=== PATIENT | female | born 1990 | race Caucasian/White ===

== ENCOUNTER 2017-01-22 21:45 | Emergency (ER) | payer MEDICAID, OTHER ==
[~2017-01-22] VITALS: Ht 162.6 cm; Wt 71.9 kg
[2017-01-22 21:51] VITALS: Ht 162.6 cm; Wt 71.9 kg
[2017-01-22] MEDS ORDERED: ONDANSETRON (ODT) 4 MG TAB ODT STA (22:05)
[2017-01-22] MEDS ORDERED: SOD CHLORIDE 0.9% 1,000 ML IV STA (23:08)
[2017-01-22 23:36] LABS: BASOPHILS % 0.2 % (0.0-2.0); EOSINOPHILS # 0.1 10^3/ul (0.0-0.5); EOSINOPHILS % 0.8 % (0.0-7.0); HEMATOCRIT 39.4 % (37.0-47.0); HEMOGLOBIN 12.9 g/dl (12.0-16.0); LYMPHOCYTES # 2.4 10^3/ul (0.8-2.9); LYMPHOCYTES % 25.9 % (15.0-51.0); MEAN CORPUSCULAR HEMOGLOBIN 27.6 pg (29.0-33.0); MEAN CORPUSCULAR HGB CONC 32.7 g/dl (32.0-37.0); MEAN CORPUSCULAR VOLUME 84.2 fl (82.0-101.0); MEAN PLATELET VOLUME 9.3 fl (7.4-10.4); MONOCYTE # 0.8 10^3/ul (0.3-0.9); MONOCYTES % 8.5 % (0.0-11.0); NEUTROPHIL # 6.1 10^3/ul (1.6-7.5); NEUTROPHILS % 64.3 % (39.0-77.0); PLATELET COUNT 331 10^3/UL (140-415); RED BLOOD COUNT 4.68 10^6/ul (4.20-5.40); RED CELL DISTRIBUTION WIDTH 13.2 % (11.5-14.5); WHITE BLOOD COUNT 9.4 10^3/ul (4.8-10.8)
[2017-01-22 23:52] LABS: ADD UMIC YES; UR ASCORBIC ACID NEGATIVE (NEGATIVE); UR BACTERIA FEW /HPF (NONE SEEN); UR BILIRUBIN (Dip) NEGATIVE (NEGATIVE); UR BLOOD (Dip) NEGATIVE (NEGATIVE); UR CLARITY CLOUDY (CLEAR); UR COLOR AMBER (YELLOW); UR GLUCOSE (Dip) NEGATIVE (NEGATIVE); UR KETONES (Dip) NEGATIVE (NEGATIVE); UR LEUKOCYTE ESTERASE (Dip) 1+ Leu/ul (NEGATIVE); UR MUCUS MANY /HPF (NONE SEEN); UR NITRITE (Dip) NEGATIVE (NEGATIVE); UR RBC 2 /HPF (0-5); UR SPECIFIC GRAVITY (Dip) 1.027 (1.003-1.030); UR SQUAMOUS EPITHELIAL CELL MANY /HPF (FEW); UR TOTAL PROTEIN (Dip) 1+ mg/dl (NEGATIVE); UR UROBILINOGEN (Dip) 2+ mg/dL (NEGATIVE)
[2017-01-22 23:57] LABS: ALBUMIN 4.1 g/dl (3.3-4.9); ALBUMIN/GLOBULIN RATIO 1.17; BILIRUBIN,INDIRECT 0.3 mg/dl (0-1.1); BILIRUBIN,TOTAL 0.3 mg/dl (0.2-1.3); CALCIUM 8.9 mg/dl (8.4-10.2); CREATININE 0.7 mg/dl (0.44-1.00); POTASSIUM 3.3 mmol/L (3.5-5.1); TOTAL PROTEIN 7.6 g/dl (6.1-8.1)
[2017-01-23] MEDS ORDERED: ONDA4TAB14 PO (00:10)
[2017-01-23] MEDS ORDERED: NITR-58 PO (00:10)
--- NOTE | 2017-01-23 00:20 | ERD ---
ER Documentation Chief Complaint Chief Complaint vomiting x 3 days; diarrhea, pain on back denies diff urinating HPI 26-year-old male patient with no significant past medical history presents to the ED complaining of vomiting and diarrhea that started 5 days ago. Reports that she has had about 5 episodes of nausea and vomiting per day. Reports that she feels slightly weak. Denies any chest pain, shortness of breath, melena, hematemesis, abdominal pain, fever, chills. Patient states that her daughter also has similar symptoms and they both ate at [employer]. ROS All systems reviewed and are negative except as per history of present illness. Medications Home Meds Active Scripts Nitrofurantoin Monohyd Macrocr* (Macrobid*) 100 Mg Capsr, 100 MG PO BID for 7 Days, CAP Prov:VERA MEDEIROS PA-C 01/23/17 Ondansetron (Ondansetron Odt) 4 Mg Tab.rapdis, 4 MG PO Q6H Y for NAUSEA AND/OR VOMITING, #10 TAB Prov:VERA MEDEIROS PA-C 01/23/17 Allergies Allergies: Coded Allergies: No Known Allergy (Unverified , 06/04/15) PMhx/Soc History of Surgery: Yes (R Foot Surg) Anesthesia Reaction: No Hx Neurological Disorder: No Hx Respiratory Disorders: No Hx Cardiac Disorders: No Hx Psychiatric Problems: Yes (Anxiety) Hx Miscellaneous Medical Probl: No Hx Alcohol Use: No Hx Substance Use: No Hx Tobacco Use: No Smoking Status: Never smoker Physical Exam Vitals Vital Signs Date Time Temp Pulse Resp B/P Pulse Ox O2 Delivery O2 Flow Rate FiO2 01/23/17 00:42 98.3 72 20 118/66 98 01/22/17 21:51 99.3 87 20 126/71 98 Physical Exam Const: Fph-[id number], well-nourished. In no acute distress. Head: Atraumatic, normocephalic Eyes: Normal Conjunctiva without injection. No purulent discharge. ENT: Normal external ear, nose. Moist oropharynx without tonsillar exudates. Non -erythematous pharynx. Uvula midline. No drooling. No trismus. Neck: No cervical midline tenderness. Full range of motion. No meningismus. No cervical lymphadenopathy. No JVD. Resp: Clear to auscultation bilaterally. No wheezing, rhonchi, rales, or crackles. No accessory muscle use. No retractions. Cardio: Regular rate and rhythm. No murmurs, rubs or gallops. Abd: Soft, nontender, non distended. Normal bowel sounds. No palpable masses. No rebound tenderness. No guarding. Negative McBurney's point. Negative psoas sign. Negative obturator sign. Skin: No petechiae or rashes Back: No midline tenderness. No CVA tenderness. Ext: No cyanosis, or edema. Neur: Awake and alert. Normal gait. Normal coordination. Psych: Normal Mood and Affect Result Diagram: 01/22/17 23101/22/17 2310 Results 24 hrs Laboratory Tests Test 01/22/17 23:10 01/22/17 23:13 White Blood Count 9.410^3/ul Red Blood Count 4.6810^6/ul Hemoglobin 12.9g/dl Hematocrit 39.4% Mean Corpuscular Volume 84.2fl Mean Corpuscular Hemoglobin 27.6pg Mean Corpuscular Hemoglobin Concent 32.7g/dl Red Cell Distribution Width 13.2% Platelet Count 46673^3/UL Mean Platelet Volume 9.3fl Neutrophils % 64.3% Lymphocytes % 25.9% Monocytes % 8.5% Eosinophils % 0.8% Basophils % 0.2% Nucleated Red Blood Cells % 0.0/100WBC Neutrophils # 6.110^3/ul Lymphocytes # 2.410^3/ul Monocytes # 0.810^3/ul Eosinophils # 0.110^3/ul Basophils # 0.010^3/ul Nucleated Red Blood Cells # 0.010^3/ul Sodium Level 139mmol/L Potassium Level 3.3mmol/L Chloride Level 102mmol/L Carbon Dioxide Level 29mmol/L Anion Gap 11 Blood Urea Nitrogen 11mg/dl Creatinine 0.70mg/dl Glucose Level 89mg/dl Calcium Level 8.9mg/dl Total Bilirubin 0.3mg/dl Direct Bilirubin 0.00mg/dl Indirect Bilirubin 0.3mg/dl Aspartate Amino Transf (AST/SGOT) 23IU/L Alanine Aminotransferase (ALT/SGPT) 35IU/L Alkaline Phosphatase 57IU/L Total Protein 7.6g/dl Albumin 4.1g/dl Globulin 3.50g/dl Albumin/Globulin Ratio 1.17 Lipase 61U/L Urine Color CONTRERAS Urine Clarity CLOUDY Urine pH 6.0 Urine Specific [place] 1.027 Urine Ketones NEGATIVEmg/dL Urine Nitrite NEGATIVEmg/dL Urine Bilirubin NEGATIVEmg/dL Urine Urobilinogen 2+mg/dL Urine Leukocyte Esterase 1+Bozena/ul Urine Microscopic RBC 2/HPF Urine Microscopic WBC 17/HPF Urine Squamous Epithelial Cells MANY/HPF Urine Bacteria FEW/HPF Urine Mucus MANY/HPF Urine Hemoglobin NEGATIVEmg/dL Urine Glucose NEGATIVEmg/dL Urine Total Protein 1+mg/dl Current Medications Medications (Trade) Dose Ordered Sig/Pepe Route PRN Reason Start Time Stop Time Status Last Admin Dose Admin Ondansetron HCl 4 mg 4 mg ONCE STAT ODT 01/22/17 22:05 01/22/17 22:07 DC 01/22/17 22:42 Sodium Chloride (NS) 1,000 ml @ 1,000 mls/hr Q1H STAT IV 01/22/17 23:08 01/23/17 00:07 DC 01/22/17 23:24 Procedures/MDM This is a 26-year-old female patient with no significant past medical history presents to the ED complaining of vomiting, diarrhea, dysuria that started intermittently for the past 5 days. Patient afebrile nontoxic appearing. Patient has normal vital signs. Patient given Zofran and a p.o. challenge here in the ED. Patient did not tolerate oral intake, therefore patient was further worked up. A CBC, CMP, lipase, UA, urine was ordered to further evaluate patient. Patient was treated here in the ED with 1 L of normal saline. Patient now tolerated oral intake. Patient had excessive p.o. challenge. Patient did not vomit here in the ED. CBC: No leukocytosis. No e/o of systemic infection. No e/o anemia. CMP: No e/o severe acidosis, alkalosis, renal failure, diabetic ketoacidosis, liver disease Lipase within normal limits. Urine: 1+ leukocyte esterase with 17 WBC, no nitrites, no hematuria. Negative urine . Patient will be treated for a urinary tract infection. Low suspicion for dehydration, ectopic , ovarian torsion, gastritis, GERD, peptic ulcer disease, cholecystitis, choledocholithiasis, cholangitis, pancreatitis, appendicitis, bowel obstruction, ileus, volvulus, nephrolithiasis, pyelonephritis, hepatitis, perforated viscus, diverticulitis, strangulated/ incarcerated hernia, DKA, acute abdomen, mesenteric ischemia or other emergent conditions. Discharge medications: Aimee Caro Follow up with primary care physician in 1-2 days. She instructed to eat a banana at home for her 3.3 potassium. Instructed patient to return to the ED sooner for any worsening symptoms. Patient's questions were answered. Patient understood and agreed with discharge plan. Patient discharged stable. Departure Diagnosis: Primary Impression: Vomiting and diarrhea Additional Impression: Dysuria Condition: Stable Patient Instructions: Urinary Tract Infections in Women, Self-Care for Vomiting and Diarrhea, Diet, Vomiting Or Diarrhea [6Yr-Adult] Referrals: COMMUNITY CLINICS YOU HAVE RECEIVED A MEDICAL SCREENING EXAM AND THE RESULTS INDICATE THAT YOU DO NOT HAVE A CONDITION THAT REQUIRES URGENT TREATMENT IN THE EMERGENCY DEPARTMENT. FURTHER EVALUATION AND TREATMENT OF YOUR CONDITION CAN WAIT UNTIL YOU ARE SEEN IN YOUR DOCTORS OFFICE WITHIN THE NEXT 1-2 DAYS. IT IS YOUR RESPONSIBILITY TO MAKE AN APPOINTMENT FOR FOLOW-UP CARE. IF YOU HAVE A PRIMARY DOCTOR --you should call your primary doctor and schedule an appointment IF YOU DO NOT HAVE A PRIMARY DOCTOR YOU CAN CALL OUR PHYSICIAN REFERRAL HOTLINE AT IF YOU CAN NOT AFFORD TO SEE A PHYSICIAN YOU CAN CHOSE FROM THE FOLLOWING [facility] [address] [facility]. [facility] [address] [facility]. [facility] [address] [facility] [facility] [address] [facility]. [facility] [address] [facility]. [facility]. [address] [facility]. [facility] YOU HAVE RECEIVED A MEDICAL SCREENING EXAM AND THE RESULTS INDICATE THAT YOU DO NOT HAVE A CONDITION THAT REQUIRES URGENT TREATMENT IN THE EMERGENCY DEPARTMENT. FURTHER EVALUATION AND TREATMENT OF YOUR CONDITION CAN WAIT UNTIL YOU ARE SEEN IN YOUR DOCTORS OFFICE WITHIN THE NEXT 1-2 DAYS. IT IS YOUR RESPONSIBILITY TO MAKE AN APPOINTMENT FOR FOLOW-UP CARE. IF YOU HAVE A PRIMARY DOCTOR --you should call your primary doctor and schedule and appointment IF YOU DO NOT HAVE A PRIMARY DOCTOR YOU CAN CALL OUR PHYSICIAN REFERRAL HOTLINE AT . IF YOU CAN NOT AFFORD TO SEE A PHYSICIAN YOU CAN CHOSE FROM THE FOLLOWING [facility] INSTITUTIONS: [facility] [address] [place] [address] [facility] [address] [place] [address] [facility] + [facility] [address] [place] [address] [facility]CIALTIES Additional Instructions: Call your primary care doctor TOMORROW for an appointment during the next 2-3 days.See the doctor sooner or return here if your condition worsens before your appointment time. VERA MEDEIROS PA-C Jan 23, 2017 00:20
[2017-01-23 00:42] VITALS: BP 118/66; PULSE 72; RESP 20; TEMP 98.3
== END 2017-01-23 00:51 | disposition home or self-care (01) ==
LOC: FTE 21:45
DX: R11.10 Vomiting, unspecified (principal); R19.7 Diarrhea, unspecified; R30.0 Dysuria
CPT/HCPCS: 36415; 80053; 81001; 83690; 85025; J7030; Z7502; Z7610

== ENCOUNTER 2017-10-25 20:24 | Emergency (ER) | END 2017-10-25 23:00 | disposition home or self-care (01) ==

== ENCOUNTER 2018-07-30 17:13 | Emergency (ER) | payer BC, OTHER ==
[~2018-07-30] VITALS: Ht 157.5 cm; Wt 73.3 kg
[~2018-07-30 17:13] MED LIST: DIC20 PO; NITR-58 PO; ONDA4TAB14 PO; RANI150T35 PO
[2018-07-30 17:26] VITALS: Ht 157.5 cm; Wt 73.3 kg
--- NOTE | 2018-07-30 19:07 | ERD ---
ER Documentation Chief Complaint Chief Complaint VAG BLEED 7 WEEKS , HPI 27-year-old G2, P1 female in her seventh week of with LMP of 06/12/2018 presents with complaint of vaginal bleeding since yesterday. States that she has been spotting and not going through pads. States that her OB told her to come here. She also states that her progesterone is low. Denies any abdominal pain, dysuria, hematuria, pelvic pain, lightheadedness, palpitations, chest pain. Denies any allergies. Denies any medical problems. ROS All systems reviewed and are negative except as per history of present illness. Medications Home Meds Active Scripts Cephalexin* (Keflex*) 500 Mg Capsule, 500 MG PO BID for 7 Days, CAP Prov:CLAIRE LUIS 07/30/18 Ranitidine Hcl* (Zantac*) 150 Mg Tablet, 150 MG PO BID PRN for EPIGASTRIC PAIN, #30 TAB Prov:NEDRA LANDAVERDE NP 10/25/17 Dicyclomine HCl (Dicyclomine HCl) 20 Mg Tablet, 1 TAB PO Q6, #20 Prov:NEDRA LANDAVERDE NP 10/25/17 Ondansetron (Ondansetron Odt) 4 Mg Tab.rapdis, 4 MG PO Q6H PRN for NAUSEA AND/OR VOMITING, #10 TAB Prov:NEDRA LANDAVERDE NP 10/25/17 Nitrofurantoin Monohyd Macrocr* (Macrobid*) 100 Mg Capsr, 100 MG PO BID for 7 Days, CAP Prov:VERA MEDEIROS PA-C 01/23/17 Ondansetron (Ondansetron Odt) 4 Mg Tab.rapdis, 4 MG PO Q6H PRN for NAUSEA AND/OR VOMITING, #10 TAB Prov:VEAR MEDEIROS PA-C 01/23/17 Allergies Allergies: Coded Allergies: No Known Allergy (Unverified , 06/04/15) PMhx/Soc History of Surgery: Yes (R Foot Surg) Anesthesia Reaction: No Hx Neurological Disorder: No Hx Respiratory Disorders: No Hx Cardiac Disorders: No Hx Psychiatric Problems: Yes (Anxiety) Hx Miscellaneous Medical Probl: No Hx Alcohol Use: No Hx Substance Use: No Hx Tobacco Use: No Smoking Status: Never smoker FmHx Family History: No diabetes, No coronary disease, No other Physical Exam Vitals Vital Signs Date Temp Pulse Resp B/P (MAP) Pulse Ox O2 O2 Flow FiO2 Time Delivery Rate 07/30/18 98.2 74 17 111/64 98 Room Air 21:33 (80) 07/30/18 98.4 72 18 133/75 100 17:26 (94) Physical Exam Const: No acute distress Head: Atraumatic Eyes: Normal Conjunctiva ENT: Normal External Ears, Nose and Mouth. Neck: Full range of motion. No meningismus. Resp: Clear to auscultation bilaterally Cardio: Regular rate and rhythm, no murmurs Abd: Soft, non tender, non distended. Normal bowel sounds Skin: No petechiae or rashes Back: No midline or flank tenderness Ext: No cyanosis, or edema Neur: Awake and alert Psych: Normal Mood and Affect Result Diagram: 07/30/181907 Results 24 hrs Laboratory Tests Test 07/30/18 19:08 White Blood Count 12.2 10^3/ul Red Blood Count 4.49 10^6/ul Hemoglobin 12.4 g/dl Hematocrit 38.9 % Mean Corpuscular Volume 86.6 fl Mean Corpuscular Hemoglobin 27.6 pg Mean Corpuscular Hemoglobin Concent 31.9 g/dl Red Cell Distribution Width 13.1 % Platelet Count 383 10^3/UL Mean Platelet Volume 9.3 fl Immature Granulocytes % 0.300 % Neutrophils % 66.6 % Lymphocytes % 25.9 % Monocytes % 6.2 % Eosinophils % 0.8 % Basophils % 0.2 % Nucleated Red Blood Cells % 0.0 /100WBC Immature Granulocytes # 0.040 10^3/ul Neutrophils # 8.1 10^3/ul Lymphocytes # 3.2 10^3/ul Monocytes # 0.8 10^3/ul Eosinophils # 0.1 10^3/ul Basophils # 0.0 10^3/ul Nucleated Red Blood Cells # 0.0 10^3/ul Urine Color YELLOW Urine Clarity CLOUDY Urine pH 8.0 Urine Specific [place] 1.014 Urine Ketones NEGATIVE mg/dL Urine Nitrite NEGATIVE mg/dL Urine Bilirubin NEGATIVE mg/dL Urine Urobilinogen NEGATIVE mg/dL Urine Leukocyte Esterase 3+ [place]zen[place]/ul Urine Microscopic RBC 1 /HPF Urine Microscopic WBC 2 /HPF Urine Squamous Epithelial Cells MANY /HPF Urine Mucus FEW /HPF Urine Hemoglobin NEGATIVE mg/dL Urine Glucose NEGATIVE mg/dL Urine Total Protein NEGATIVE mg/dl Beta HCG, Quantitative 84526.0 mIU/ml Procedures/MDM DIAGNOSTIC IMAGING REPORT Patient: CARMELLA IVERSON : 1990 Age: 27 Sex: F MR #: [id number] DOS: 07/30/18 1852 Ordering MD: CLAIRE LUIS Location: [facility] Room/Bed: PROCEDURE: US OB. CLINICAL INDICATION: First trimester hemorrhage. Threatened . TECHNIQUE: Transabdominal and transvaginal views of the pelvis are available for review. COMPARISON: No prior studies are available for comparison. FINDINGS: The uterus is retroflexed. It is of normal contour and echogenicity. Noted is a single intrauterine gestation sac. Mean sac diameter measures 1.25 cm in diameter. There is a pole with a heart beat measuring 131 beats per minute. [place]-rump length measures 4.9 millimeters corresponding to a gestational age of 6 weeks 1 days by ultrasound criteria. There is a 2.6 x 1.2 x 0.6 cm subchorionic hemorrhage. The right ovary measures 3.0 x 1.3 x 2.1 centimeter. The left ovary measures 3.2 x 2.1 x 2.5 centimeter. No adnexal masses seen. There is normal arterial flow to both ovaries on color-flow Doppler imaging. There is trace free fluid in the pelvis. No solid pelvic mass is present. IMPRESSION: Single intrauterine gestation of approximate gestational age 6 weeks 1 days by ultrasound criteria with positive heart beat. Small subchorionic hemorrhage. .Hemanth Gonzalez MD, MD Date Time Electronically viewed and signed by .Hemanth Gonzalez MD, MD on 07/30/2018 20:03 .A/ CC: CLAIRE LUIS [id number] MDM: ER Course: CBC, UA, beta quant HCG, type and RH, vaginal US/abdominal US ordered. MDM: Ultrasound showed live intrauterine with subchorionic hemorrhage which most likely explains the spotting. UA also showed UTI so patient will be given a course of Keflex. At this point I have low suspicion for ectopic based on results of US, hemodynamic stability, physical exam and patient history. I have low suspicion for septic , pyelonephritis, placenta abrupta, appendicitis, cholecystitis, bowel obstruction, ovarian torsion, symptomatic anema, PID, surgical abdomen, hemorrhage, or other life threatening conditions based on patient history, physical exam, and lab/imaging results. At time of discharge patient was hemodynamically stable. Patient advised that since she has subchorionic hemorrhage she would need close follow-up with her OB. Patient understood and agreed to follow-up within 24 hours. Patient discharged with strict ER precautions. 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 All questions answered at discharge. Departure Diagnosis: Primary Impression: Vaginal bleeding in patient at less than 20 weeks gestation Additional Impressions: Subchorionic hemorrhage in first trimester Fetus number: single or unspecified fetus Qualified Codes: O41.8X10 - Other specified disorders of amniotic fluid and membranes, first trimester, not applicable or unspecified; O46.8X1 - Other antepartum hemorrhage, first trimester UTI (urinary tract infection) during Trimester: first trimester Qualified Codes: O23.41 - Unspecified infection of urinary tract in , first trimester Condition: CLAIRE Clifton Jul 30, 2018 19:07
[2018-07-30] MEDS ORDERED: CEPH-443 PO (21:19)
[2018-07-30 21:33] VITALS: BP 111/64; PULSE 74; RESP 17
== END 2018-07-30 21:35 | disposition home or self-care (01) ==
LOC: FTE 17:13
DX: O41.8X10 Other specified disorders of amniotic fluid and membranes, first trimester, not applicable or unspecified (principal); O46.8X1 Other antepartum hemorrhage, first trimester; O23.41 Unspecified infection of urinary tract in pregnancy, first trimester; Z3A.01 Less than 8 weeks gestation of pregnancy
CPT/HCPCS: 36415; 76801; 76817; 81001; 84702; 85025; 86900; 86901; 87086